=== PATIENT | male | born 1950 | race African-American/Black ===

== ENCOUNTER 2017-03-14 23:49 | Observation (INO) ==
[2017-03-15 00:08] LABS: Basophils # 0.1 K/mcL (0.0-0.2); Basophils % 0.7 %; Eosinophils # 0.2 K/mcL (0.0-0.6); Eosinophils % 2.6 %; Hematocrit 40.4 % (37.5-50.1); Hemoglobin 14.2 g/dL (12.9-16.9); Immature Granulocytes % 0.1 % (0-4); Lymphocytes # 3.2 K/mcL (0.6-4.6); Lymphocytes % 45.1 %; Mean Corpuscular HGB Conc 35.1 g/dL (31.6-35.5); Mean Corpuscular Hemoglobin 31.7 pg (28.0-33.3); Mean Corpuscular Volume 90.2 fL (83.0-100.0); Mean Platelet Volume 9.5 fL (9.4-12.4); Monocytes # 0.6 K/mcL (0.0-1.3); Monocytes % 8.8 %; Neutrophils # 3.1 K/mcL (1.6-8.9); Platelet Count 254 K/mcL (140-400); Red Blood Count 4.48 M/mcL (4.19-5.50); Red Cell Distribution Width 14.6 % (11.5-14.5); Segmented Neutrophils % 42.7 %
[2017-03-15 00:16] LABS: Prothrombin Time 21.3 Seconds (9.4-12.1)
[2017-03-15 00:19] LABS: Activated Partial Thrombo Time 52.7 Seconds (26.0-36.0)
[2017-03-15 00:24] LABS: BUN/Creatinine Ratio 13 (6-26); Blood Urea Nitrogen 14 mg/dL (8-26); Calcium 9.1 mg/dL (8.6-10.8); Carbon Dioxide 27 mEq/L (19-29); Chloride 107 mEq/L (98-109); Glucose 80 mg/dL (70-99); Osmolality,Calculated 293 (280-300); Sodium 142 mEq/L (136-145); eGFR For African Americans > 60 (> 60); eGFR For Non-African Americans > 60 (> 60)
[2017-03-15] MEDS ORDERED: Nitroglycerin 1 INCH/GM PACKET TP ONE (00:33)
--- NOTE | 2017-03-15 00:38 | Emergency Department Note ---
Disposition Clinical Impression: Chest pain Qualifiers: Chest pain type: unspecified Qualified Code(s): R07.9 - Chest pain, unspecified Disposition: Admitted As Inpatient Condition: Good Referrals: NO,PCP [Primary Care Provider] - Forms: ED Satisfaction Letter Time of Disposition: 01:27 Chest Pain HPI - General Chief Complaint: ED Chest Pain Stated Complaint: CHEST PAIN Time Seen by Provider: 03/14/17 23:54 - History of Present Illness HPI Narrative: Patient presents to the emergency department for evaluation of chest pain. He reports approximate 4 hour history of left-sided chest pain without radiation migration exacerbating or alleviating features. He states he has had "belching. " He denies associated dyspnea nausea vomiting or diaphoresis. He denies lower extremity edema or calf discomfort. He reports a history of atrial fibrillation. He is anticoagulated. He denies prior NV or cardiac stent. Severity scale (1-10): 9 - Related Data Home Medications Medication Instructions Recorded Confirmed OxyCODONE Immed Rel [Roxicodone] 15 mg PO Q6HR 05/13/15 03/15/17 Rivaroxaban [Xarelto] 20 mg PO DAILY 05/13/15 03/15/17 Tamsulosin [Flomax] 0.4 mg PO DAILY 05/13/15 03/15/17 Ergocalciferol (VITAMIN D2) 50,000 unit PO 2XW 07/12/15 03/15/17 [Vitamin D2 (50,000 UNIT)] Lansoprazole [Prevacid] 30 mg PO QAM 07/20/16 03/15/17 Previous Rx's Medication Instructions Recorded Cyclobenzaprine [Flexeril] 10 mg PO TID PRN #10 tablet 07/20/16 Allergies Allergy/AdvReac Type Severity Reaction Status Date / Time cephalexin [From Keflex] Allergy Rash Verified 03/15/17 00:03 codeine Allergy Rash Verified 03/15/17 00:03 ibuprofen AdvReac See Verified 03/15/17 00:03 Comments tramadol [From Ultram] AdvReac Vomiting Verified 03/15/17 00:03 Constitutional: Denies: fever, chills Eyes: Denies: vision change Cardiovascular: Reports: as per HPI. Denies: palpitations Respiratory: Denies: cough, dyspnea, wheezes, hemoptysis Gastrointestinal: Denies: abdominal pain, nausea, vomiting, diarrhea Musculoskeletal: Denies: back pain, neck pain Integumentary: Denies: rash Neurological: Denies: headache Chest Pain PMH - Past Medical History Medical history: Reports: arthritis, atrial fibrillation, DVT, GERD, hyperlipidemia, pulmonary embolus, RA, other Surgical history: Reports: knee replacement, orthopedic, other, other Psychiatric history: Reports: no psych history - Social History Smoking Status: Current every day smoker Alcohol use: Reports: occasionally Drug use: Reports: none, other Physical Exam - General Limitations: no limitations General appearance: alert, in no apparent distress - Head Head exam: atraumatic, normocephalic, normal inspection - Eye Eye exam: Present: normal appearance, PERRL, EOMI - ENT ENT exam: normal exam, normal oropharynx, mucous membranes moist - Chest Chest inspection: Present: normal inspection, symmetric chest wall rise - Respiratory Respiratory exam: Present: normal lung sounds bilaterally - Cardiovascular Cardiovascular exam: Present: regular rate, normal rhythm, normal heart sounds - Abdominal Exam Abdominal exam: Present: soft, Non-Tender. Absent: tenderness, distention, guarding, rebound, rigidity - Extremities Exam Extremities exam: Present: normal inspection, full ROM. Absent: tenderness, pedal edema, calf tenderness - Expanded Lower Extremity Exam Neurovascular/Tendon exam: Absent: motor deficit, sensory deficit, tendon deficit - Neurological Exam Neurological exam: Present: alert, oriented X3 - Psychiatric Psychiatric exam: Present: normal affect - Skin Skin exam: Present: warm, dry, intact, normal color Course Vital Signs Temperature 97.3 F L 03/14/17 23:50 Pulse Rate 68 03/14/17 23:50 Respiratory Rate 24 03/14/17 23:50 Blood Pressure 135/67 03/14/17 23:50 O2 Sat by Pulse Oximetry 97 03/14/17 23:50 Temperature 97.3 F L 03/14/17 23:52 Pulse Rate 57 03/15/17 01:12 Respiratory Rate 20 03/15/17 01:12 Blood Pressure 122/68 03/15/17 01:12 O2 Sat by Pulse Oximetry 97 03/15/17 01:12 Oxygen Delivery Oxygen Delivery Room Air Chest Pain - MDM Narrative Medical decision making narrative: Time 0 125: Patient resting comfortably. Hemodynamically stable. Patient will be admitted for serial cardiac enzymes. - Lab Data Lab results reviewed: Yes I reviewed the patient's lab results. Result diagrams: 03/15/17 00:00 03/15/17 00:00 Lab Results 03/14/17 03/14/17 03/15/17 Range/Units 23:55 23:55 00:00 WBC 7.2 (4.3-11.1) K/mcL RBC 4.48 (4.19-5.50) M/mcL Hgb 14.2 (12.9-16.9) g/dL Hct 40.4 (37.5-50.1) % MCV 90.2 (83.0-100.0) fL MCH 31.7 (28.0-33.3) pg MCHC 35.1 (31.6-35.5) g/dL RDW 14.6 H (11.5-14.5) % Plt Count 254 (140-400) K/mcL MPV 9.5 (9.4-12.4) fL Immature Gran % 0.1 (0-4) % Seg Neutrophils % 42.7 % Lymphocytes % 45.1 % Monocytes % 8.8 % Eosinophils % 2.6 % Basophils % 0.7 % Neutrophils # 3.1 (1.6-8.9) K/mcL Lymphocytes # 3.2 (0.6-4.6) K/mcL Monocytes # 0.6 (0.0-1.3) K/mcL Eosinophils # 0.2 (0.0-0.6) K/mcL Basophils # 0.1 (0.0-0.2) K/mcL PT 21.3 H (9.4-12.1) Seconds INR 2.0 APTT 52.7 H (26.0-36.0) Seconds Sodium (136-145) mEq/L Potassium (3.5-4.5) mEq/L Chloride (98-109) mEq/L Carbon Dioxide (19-29) mEq/L BUN (8-26) mg/dL Creatinine (0.72-1.25) mg/dL Est GFR ( Amer) (> 60) Est GFR (Non-Af Amer) (> 60) BUN/Creatinine Ratio (6-26) Glucose (70-99) mg/dL Calculated Osmolality (280-300) Calcium (8.6-10.8) mg/dL Total Bilirubin 0.5 (0.2-1.2) mg/dL Direct Bilirubin 0.2 (0.0-0.5) mg/dL Indirect Bilirubin 0.3 (0.0-1.2) mg/dL AST 15 (5-34) Units/L ALT 10 (0-55) Units/L Alkaline Phosphatase 67 (38-126) Units/L Troponin I (0-0.03) ng/mL Serum Total Protein 6.9 (6.0-8.3) g/dL Albumin 3.5 (3.5-5.0) g/dL Globulin 3.4 (2.4-3.5) g/dL Albumin/Globulin Ratio 1.0 L (1.1-2.2) Lipase 9 (8-78) Units/L 03/15/17 03/15/17 Range/Units 00:00 00:00 WBC (4.3-11.1) K/mcL RBC (4.19-5.50) M/mcL Hgb (12.9-16.9) g/dL Hct (37.5-50.1) % MCV (83.0-100.0) fL MCH (28.0-33.3) pg MCHC (31.6-35.5) g/dL RDW (11.5-14.5) % Plt Count (140-400) K/mcL MPV (9.4-12.4) fL Immature Gran % (0-4) % Seg Neutrophils % % Lymphocytes % % Monocytes % % Eosinophils % % Basophils % % Neutrophils # (1.6-8.9) K/mcL Lymphocytes # (0.6-4.6) K/mcL Monocytes # (0.0-1.3) K/mcL Eosinophils # (0.0-0.6) K/mcL Basophils # (0.0-0.2) K/mcL PT (9.4-12.1) Seconds INR APTT (26.0-36.0) Seconds Sodium 142 (136-145) mEq/L Potassium 4.0 (3.5-4.5) mEq/L Chloride 107 (98-109) mEq/L Carbon Dioxide 27 (19-29) mEq/L BUN 14 (8-26) mg/dL Creatinine 1.09 (0.72-1.25) mg/dL Est GFR ( Amer) > 60 (> 60) Est GFR (Non-Af Amer) > 60 (> 60) BUN/Creatinine Ratio 13 (6-26) Glucose 80 (70-99) mg/dL Calculated Osmolality 293 (280-300) Calcium 9.1 (8.6-10.8) mg/dL Total Bilirubin (0.2-1.2) mg/dL Direct Bilirubin (0.0-0.5) mg/dL Indirect Bilirubin (0.0-1.2) mg/dL AST (5-34) Units/L ALT (0-55) Units/L Alkaline Phosphatase (38-126) Units/L Troponin I 0.02 (0-0.03) ng/mL Serum Total Protein (6.0-8.3) g/dL Albumin (3.5-5.0) g/dL Globulin (2.4-3.5) g/dL Albumin/Globulin Ratio (1.1-2.2) Lipase (8-78) Units/L ITS Impressions Chest X-Ray 03/14/17 23:54 IMPRESSION: No acute process. D/ / John Santiago MD / John Santiago MD Interpreting Provider: John Santiago MD - Radiology Data Radiology results reviewed: Yes I reviewed the patient's radiology results. - EKG Data EKG attestation: Yes I reviewed and interpreted this EKG. EKG shows normal: sinus rhythm Rate: bradycardia (Sinus bradycardia at a rate of 52. No acute ST segment or T- wave changes.)
[2017-03-15 00:46] LABS: Albumin 3.5 g/dL (3.5-5.0); Bilirubin,Direct 0.2 mg/dL (0.0-0.5); Bilirubin,Indirect 0.3 mg/dL (0.0-1.2); Bilirubin,Total 0.5 mg/dL (0.2-1.2); Globulin 3.4 g/dL (2.4-3.5); Total Protein 6.9 g/dL (6.0-8.3)
[2017-03-15] MEDS ORDERED: Aspirin 81 MG TAB.CHEW PO ONE (01:26)
[2017-03-15] MEDS ORDERED: Naloxone 0.4 MG/ML INJ IVP PRN (01:28)
[2017-03-15] MEDS ORDERED: Acetaminophen 325 MG TABLET PO PRN (01:28)
[2017-03-15] MEDS: *HR* OxyCODONE Immed Rel 15 MG TABLET PO SCH ×2 (03:36→11:26)
[2017-03-15 05:55] LABS: Basophils % 0.5 %; Eosinophils # 0.2 K/mcL (0.0-0.6); Hematocrit 35.4 % (37.5-50.1); Hemoglobin 12.4 g/dL (12.9-16.9); Immature Granulocytes % 0.2 % (0-4); Lymphocytes % 49.3 %; Mean Corpuscular Hemoglobin 31.4 pg (28.0-33.3); Mean Corpuscular Volume 89.6 fL (83.0-100.0); Mean Platelet Volume 10.1 fL (9.4-12.4); Monocytes # 0.5 K/mcL (0.0-1.3); Monocytes % 8.7 %; Neutrophils # 2.3 K/mcL (1.6-8.9); Platelet Count 226 K/mcL (140-400); Red Blood Count 3.95 M/mcL (4.19-5.50); Red Cell Distribution Width 14.3 % (11.5-14.5); Segmented Neutrophils % 38.3 %
[2017-03-15 06:14] LABS: BUN/Creatinine Ratio 14 (6-26); Blood Urea Nitrogen 14 mg/dL (8-26); Calcium 8.3 mg/dL (8.6-10.8); Carbon Dioxide 25 mEq/L (19-29); Chloride 109 mEq/L (98-109); Glucose 93 mg/dL (70-99); Osmolality,Calculated 292 (280-300); Potassium 3.8 mEq/L (3.5-4.5); Sodium 141 mEq/L (136-145); eGFR For African Americans > 60 (> 60); eGFR For Non-African Americans > 60 (> 60)
[2017-03-15] MEDS ORDERED: *HR* Rivaroxaban 10 MG TABLET PO SCH (09:00)
[2017-03-15 12:11] VITALS: BP 151/82
--- NOTE | 2017-03-15 15:35 | Internal Med History&Physical ---
Date of Encounter: 03/15/17 Time of Encounter: 15:00 Assessment and Plan (1) Chest pain Current visit: Yes Status: Acute Doubt myocardial ischemic origin. Repeat cardiac enzymes were ordered through emergency room. Qualifiers: Chest pain type: unspecified Qualified Code(s): R07.9 - Chest pain, unspecified Internal Medicine - H&P: HPI Chief complaint: Chest discomfort Admitted From: Home Plans for Post Hospital Care: Home History of present illness: Mr. Gaxiola is a 66 year old male who came to emergency room stating he had onset of discomfort in his left chest area while at leisure approximately 8 PM. He describes it is a "gas"/sharp sensation that did not radiate. When it did not resolve after 3-4 hours he came to emergency room. He was evaluated and admitted to [facility] floor for ongoing care needs. He states he is pain-free at this time. He reports he has had previous similar discomfort less intense and of shorter duration with most recent episode 2-3 months ago. Denies hypertension DC heart failure. He has history of atrial fibrillation and had DVT 2007. He is on Xarelto for AF. He does not get angina or anginal equivalents on exertion. He had Regadenoson EST 10/15/2016 which showed no EKG or perfusion evidence of ischemia or infarct. Past Med Surg Social Fam HX - Past Medical History Medical history: arthritis, atrial fibrillation, DVT, GERD, hyperlipidemia, pulmonary embolus, RA, other Psychiatric history: no psych history - Past Surgical History Surgical History: knee replacement, orthopedic, other, other - Social History Smoking Status: Current every day smoker Smokeless Tobacco Status: No Alcohol use: occasionally Drug use: none, other Internal Medicine - H&P: Meds OxyCODONE Immed Rel [Roxicodone] 15 mg PO Q6HR 05/13/15 [History] Rivaroxaban [Xarelto] 20 mg PO DAILY 05/13/15 [History] Tamsulosin [Flomax] 0.4 mg PO DAILY 05/13/15 [History] Ergocalciferol (VITAMIN D2) [Vitamin D2 (50,000 UNIT)] 50,000 unit PO 2XW [History] Cyclobenzaprine [Flexeril] 10 mg PO TID PRN #10 tablet 07/20/16 [Rx] Lansoprazole [Prevacid] 30 mg PO QAM 07/20/16 [History] Allergies cephalexin [From Keflex] Allergy (Verified 03/15/17 00:03) Rash codeine Allergy (Verified 03/15/17 00:03) Rash ibuprofen Adverse Reaction (Verified 03/15/17 00:03) See Comments avoids due to medications tramadol [From Ultram] Adverse Reaction (Verified 03/15/17 00:03) Vomiting All Systems PM: A 10-system review of systems was performed and is negative for pertinent findings except as documented above in the HPI. Review of systems: Gen.: He states his weight has been stable the past few months Cardiovascular: As per history of present illness Respiratory: He has smoked cigarettes since age 23 never up to 1 pack per day. He denies chronic lung disease. He is also smokes cigars. He does not wear home oxygen. GI: He has GERD but denies disorders of his liver gallbladder or exocrine pancreas : He had prostate intervention procedure by Dr. Barahona several years ago but does not know details. He denies disorders of his kidney or bladder otherwise. Neurologic: He denies large distribution strokes or seizures Endocrine: He denies diabetes thyroid disease or hyperlipidemia Hematology/oncology: He had anemia on blood work in emergency room. He denies blood disorders or internal malignancies Psychiatric: He denies anxiety depression other mental health issues Musk skeletal: He has DJD and has had right total knee replacement and right great toe surgery. - Constitutional Vitals: Temp Pulse Resp BP Pulse Ox 98.4 F 66 16 151/82 99 03/15/17 12:04 03/15/17 12:04 03/15/17 12:04 03/15/17 12:04 03/15/17 12:04 Exam: Gen.: He is well-developed well-nourished male lying in bed who appears in no acute distress. He denies pain or discomfort HEENT: Head is atraumatic and normocephalic. Eyes: EOMI. There is no scleral icterus. Mouth: Mucosa is moist. Neck: Supple and nontender. There is no thyromegaly or adenopathy noted. Heart: Regular without murmurs gallops or ectopics Lungs: No wheezes or crackles heard. Abdomen: No masses or guarding are noted. There is mild discomfort in his right upper quadrant but he states that is not the pain he had yesterday. Chest: He is not tender in his chest wall to palpation. Extremities: There is no cyanosis edema or clubbing noted. Dorsalis pedis and posttibial pulses are 1-2 over 2 bilaterally. Neurologic: Mental status: He is talkative and a good historian. Cranial nerves : Smile is symmetric. Forehead wrinkles bilaterally. Tongue protrudes midline. EOMI. Motor: There is no pronator drift. Cerebellar: Finger to nose is intact bilaterally. Skin: Warm and dry Internal Med - H&P Results - Labs CBC & Chem 7: 03/15/17 05:05 03/15/17 05:05 Labs: Short CBC 03/15/17 Range/Units 05:05 WBC 6.1 (4.3-11.1) K/mcL Hgb 12.4 L D (12.9-16.9) g/dL Hct 35.4 L (37.5-50.1) % Plt Count 226 (140-400) K/mcL Neutrophils # 2.3 (1.6-8.9) K/mcL BMP 03/15/17 05:05 Sodium 141 Potassium 3.8 Chloride 109 Carbon Dioxide 25 BUN 14 Creatinine 0.97 Glucose 93 Calcium 8.3 L Cardiac Enzymes 03/15/17 03/15/17 Range/Units 05:05 11:04 Troponin I 0.02 0.01 (0-0.03) ng/mL
--- NOTE | 2017-03-15 15:48 | Discharge Summary ---
Date of Encounter: 03/15/17 Time of Encounter: 15:00 - Discharge Diagnosis (1) Chest pain Priority: Primary Status: Acute Qualifiers: Chest pain type: unspecified Qualified Code(s): R07.9 - Chest pain, unspecified - Discharge Medications Prescriptions: Nitroglycerin [Nitrostat] 0.4 mg SL Q5M #1 vial Home Medications: OxyCODONE Immed Rel [Roxicodone] 15 mg PO Q6HR 05/13/15 [History] Rivaroxaban [Xarelto] 20 mg PO DAILY 05/13/15 [History] Tamsulosin [Flomax] 0.4 mg PO DAILY 05/13/15 [History] Ergocalciferol (VITAMIN D2) [Vitamin D2 (50,000 UNIT)] 50,000 unit PO 2XW [History] Cyclobenzaprine [Flexeril] 10 mg PO TID PRN #10 tablet 07/20/16 [Rx] Lansoprazole [Prevacid] 30 mg PO QAM 07/20/16 [History] Nitroglycerin [Nitrostat] 0.4 mg SL Q5M #1 vial 03/15/17 [Rx] Allergies/Adverse Reactions: Allergies cephalexin [From Keflex] Allergy (Verified 03/15/17 00:03) Rash codeine Allergy (Verified 03/15/17 00:03) Rash ibuprofen Adverse Reaction (Verified 03/15/17 00:03) See Comments avoids due to medications tramadol [From Ultram] Adverse Reaction (Verified 03/15/17 00:03) Vomiting Date of admission: 03/15/17 01:45 Primary care physician: Brian Hartman M.D. - Patient Status Disposition: Home, Self-Care Condition: Good Functional capacity at discharge: independent ambulation Overall status at discharge: patient is progressing back to baseline - Discharge Instructions Follow Up With: Brian Hartman MD [Partnered Physician] - 1 week - Diet and Activity Activity: resume usual activities as tolerated Diet: advance to your usual diet Hospital course: Mr. Gaxiola is a 66 year old male who came to emergency room stating he had onset of discomfort in his left chest area while at leisure approximately 8 PM. He describes it is a "gas"/sharp sensation that did not radiate. When it did not resolve after 3-4 hours he came to emergency room. He was evaluated and admitted to [facility] for ongoing care needs. Initial orders were written by the emergency room. I saw him on March 15 and performed the history,physical and discharge. Repeat cardiac enzymes showed no evidence of myocardial damage. When I saw him I did not think the pain was like to be of myocardial ischemic origin. The etiology of the pain was not determined with certainty. He was pain-free when I saw him and wished to be discharged home. He will follow with his PCP within one week. I will give him a bottle of Nitrostat for prn use. - Time Spent with Patient Total time spent providing and/or coordinating discharge services: - Constitutional Vitals: Temp Pulse Resp BP Pulse Ox 98.4 F 66 16 151/82 99 03/15/17 12:04 03/15/17 12:04 03/15/17 12:04 03/15/17 12:04 03/15/17 12:04
--- NOTE | 2017-03-17 10:07 | Electrocardiograph Report ---
[address] [address] Test Date: 2017-03-14 Pat Name: Brandyn Gaxiola Department: [id number] Room: [facility] Gender: M [employer]: : 1950 Requested By: Tyler Padron Order Number: [id number] Reading MD: Flaco Augustin MD Measurements Intervals [place] Rate: 52 P: 76 AR: 217 QRS: -19 QRSD: 98 T: 50 QT: 416 QTc: 396 Interpretive Statements SINUS BRADYCARDIA WITH FIRST DEGREE AV BLOCK WITH OCCASIONAL VENTRICULAR PREMATURE COMPLEXES Electronically Signed On 03-17-2017 10:06:19 EDT by Flaco Augustin MD
== END 2017-03-15 16:01 | disposition home or self-care (01) ==
LOC: INPPIK 23:49 → EMEROOPIK 23:49 → INPPIK 03-15 02:01
PROVIDERS: ADMIT Internal Medicine; ATTEND Internal Medicine